=== PATIENT | male | born 1970 | race Two or more races ===

== ENCOUNTER 2017-11-06 02:25 | Emergency (ER) | payer MEDICAID, OTHER ==
[~2017-11-06] VITALS: Ht 157.5 cm; Wt 75.7 kg
[2017-11-06 03:56] LABS: Basophils # (auto) 0.1 uL; Basophils % (auto) 1.2 % (0.0-2.0); Eosinophils # (auto) 0.1 uL; Eosinophils % (auto) 1.7 % (0.0-7.0); Hematocrit 45.1 % (41.0-53.0); Hemoglobin 15.2 g/dL (13.5-17.5); Lymphocytes # (auto) 1.5 uL; Lymphocytes % (auto) 18.9 % (10.0-50.0); Mean Corpuscular Hemoglobin 31.6 pg (28.0-32.0); Mean Corpuscular Hgb Conc. 33.7 g/dL (32.0-36.0); Mean Corpuscular Volume 93.8 fL (80.0-100.0); Monocytes # (auto) 0.6 uL; Monocytes % (auto) 8.1 % (0.0-12.0); Neutrophils # (auto) 5.5 uL; Neutrophils % (auto) 70.1 % (37.0-80.0); Nucleated Red Blood Cells % 0.1 %; Platelet Count (auto) 207 10^3/uL (140-450); Red Cell Distribution Width 14.1 % (11.8-14.3); White Blood Cell 7.9 10^3/uL (4.4-10.8)
[2017-11-06 04:15] LABS: Albumin 3.6 g/dL (3.4-5.0); BUN/Creatinine Ratio 8.1; Calcium 8.1 mg/dL (8.5-10.1); Potassium 3.6 mmol/L (3.5-5.1)
[2017-11-06 04:17] LABS: Bilirubin, Total 0.3 mg/dL (0.2-1.0); Total Protein 7.1 g/dL (6.4-8.2)
[2017-11-06 04:18] LABS: Carbamazepine (Tegretol) < 2.0 ug/mL (4-12); Phenytoin (Dilantin) 12.1 ug/mL (10-20)
[2017-11-06] MEDS ORDERED: PHENYTOIN SODIUM 100 MG CAP PO ONE (05:45)
[2017-11-06 05:57] LABS: Urine Bacteria NONE SEEN /hpf (None Seen); Urine Blood Negative /uL (Negative); Urine WBC <1 /hpf (0 - 3)
[2017-11-06] MEDS ORDERED: LORazepam 2MG/ML-1ML VIAL IV ONE (07:15)
[2017-11-06] MEDS ORDERED: carBAMazepine 200 MG TAB PO ONE (07:15)
[2017-11-06 09:44] VITALS: BP 129/79
== END 2017-11-06 11:31 | disposition home or self-care (01) ==
LOC: ER 02:25
DX: G40.909 Epilepsy, unspecified, not intractable, without status epilepticus (principal); Z98.2 Presence of cerebrospinal fluid drainage device
CPT/HCPCS: 36415; 70450; 80053; 80156; 80185; 81001; 85025; 96374; 99285; J2060

== ENCOUNTER 2022-04-30 03:43 | Emergency (ER) | payer MEDICAID ==
[~2022-04-30] VITALS: Ht 162.6 cm; Wt 75.0 kg
[2022-04-30 04:45] LABS: Basophils # (auto) 0.1 10 ^3/uL (0-0.2); Basophils % (auto) 0.3 % (0.0-2.0); Eosinophils # (auto) 0 10 ^3/uL (0-0.8); Eosinophils % (auto) 0.2 % (0.0-7.0); Hematocrit 50.5 % (41.0-53.0); Hemoglobin 17.1 g/dL (13.5-17.5); Lymphocytes # (auto) 1.4 10 ^3/uL (0.4-5.4); Lymphocytes % (auto) 8.4 % (10.0-50.0); Mean Corpuscular Hemoglobin 31.6 pg (28.0-32.0); Mean Corpuscular Hgb Conc. 33.8 g/dL (32.0-36.0); Mean Corpuscular Volume 93.5 fL (80.0-100.0); Monocytes # (auto) 0.6 10 ^3/uL (0-1.3); Monocytes % (auto) 3.8 % (0.0-12.0); Neutrophils # (auto) 14.1 10 ^3/uL (1.6-8.6); Neutrophils % (auto) 87.3 % (37.0-80.0); Nucleated Red Blood Cells % 0.1 %; Red Cell Distribution Width 13.4 % (11.8-14.3); White Blood Cell 16.2 10^3/uL (4.4-10.8)
[2022-04-30 05:00] LABS: INR 0.99 (0.9-1.15); Partial Thromboplastin Time 29.2 sec (24.6-33.4)
[2022-04-30 05:02] LABS: Albumin 4.5 g/dL (3.4-5.0); Calcium 9.5 mg/dL (8.5-10.1); Magnesium 2.3 mg/dL (1.6-2.6); Potassium 4.4 mmol/L (3.5-5.1)
[2022-04-30 05:05] LABS: BUN/Creatinine Ratio 15.5; Bilirubin, Total 0.4 mg/dL (0.2-1.0); Total Protein 8.2 g/dL (6.4-8.2)
[2022-04-30 12:50] VITALS: BP 197/114
[2022-04-30 13:24] LABS: Urine Bacteria NONE SEEN /hpf (None Seen); Urine Blood Negative /uL (Negative); Urine Specific Gravity 1.011 (1.001-1.035); Urine WBC 1 /hpf (0 - 3)
== END 2022-04-30 14:21 | disposition home or self-care (01) ==
LOC: ER 03:43 → EDBD 03:43 → ER 14:21
DX: R11.2 Nausea with vomiting, unspecified (principal); F17.210 Nicotine dependence, cigarettes, uncomplicated
CPT/HCPCS: 36415; 70450; 74176; 80053; 81001; 83690; 83735; 83880; 84484; 85025; 85610; 85730; 93005